=== PATIENT | male | born 1945 | race Caucasian/White ===

== ENCOUNTER 2017-03-25 08:14 | Day surgery (SDC) | payer OTHER ==
[2017-03-25] MEDS ORDERED: Lactated Ringers 1,000 ML IV SCH (09:30)
[2017-03-25] MEDS ORDERED: Propofol 200 MG/20 ML SDV IV ONE (10:00)
[2017-03-25] MEDS ORDERED: Midazolam 1 MG/ML 2 ML SDV IV ONE (10:00)
[2017-03-25] MEDS ORDERED: Bupivacaine 0.5%/EPINEPHrine 1:200,000 50 ML MDV INJECT ONE (10:17)
--- NOTE | 2017-03-25 11:07 | PCM.OPNOTE ---
- General Post-Op/Procedure Note Date of Surgery/Procedure: 03/25/17 Operative Procedure(s): wide local excision of basal cell ca bilateral shins with frozen section Findings: negative margins on frozen Pre Op Diagnosis: basal cell ca ant lower ext bilateral Anesthesia Technique: Local (11 ml 1% lido with epi/0.5% buvipicaine), MAC Primary Surgeon: Juan Chamberlain Anesthesia Provider: Verenice Mills Pathology: shave bx sites with 5 mm margins Complications: None Condition: Good Free Text/Narrative:: see dictation
--- NOTE | 2017-03-25 12:48 | OR ---
DATE OF OPERATION: 03/25/2017 SURGEON: Juan Chamberlain MD PROCEDURE PERFORMED: Wide local excision basal cell carcinoma, anterior shins bilaterally. PREOPERATIVE DIAGNOSIS: Basal cell carcinoma of the anterior shins. POSTOPERATIVE DIAGNOSIS: Basal cell carcinoma of the anterior shins. INDICATIONS FOR PROCEDURE: This is a 71-year-old white male, who underwent shave biopsies of some skin lesions on his shins. These were positive for basal cell carcinoma. He was brought to the operating room for wide local excision of both these lesions. Intraoperative findings are as follows. Well-healing shave sites with 5 mm margins of the skin were obtained. Frozen section reveals negative margins on both. DESCRIPTION OF PROCEDURE: After an excellent IV sedation was administered, the patient was prepped and draped in the usual sterile manner. Attention was turned to the left lower extremity where roughly a 1.5 cm lesion was identified and an additional 5 mm was marked out with a marking pen. The area was then infiltrated with a 1:1 mixture of 1% lidocaine with epinephrine and 0.5% bupivacaine. A circular incision was then made and the specimen was passed off the field after marking superior and lateral margins. We were able to pull the margins together adequately. This was done initially with 2-0 silk and then using interrupted vertical mattress sutures the skin was approximated. Two dog ears were excised and closed as well. This was done using 3-0 nylon. Two stay sutures of the silk were then removed. Specimen was sent for frozen section analysis, and while this was going on, our attention was turned to the right lower extremity where again we had roughly a 1.5 cm lesion with margins marked out the 5 mm. The area was infiltrated with more local, a grand total of 11 mL of the mixture was used, a circular incision was created, and the specimen was excised from the underlying skin tissue and was passed off the field after marking superior and lateral margins as well. This was also closed by placing two stay sutures of 2-0 silk and then approximating the skin edges after excising a dog ears using interrupted 3-0 nylon in a horizontal mattress suture pattern. Verbal reports by Dr. Park are that both of lesions are negative. Dressings were applied and the patient was taken to recovery in good condition. /[id number] /MODL
[2017-03-25 14:04] VITALS: BP 138/81
== END 2017-03-25 12:12 | disposition home or self-care (01) ==
LOC: FB.SDS 08:14
PROVIDERS: ATTEND Surgery
DX: C44.712 Basal cell carcinoma of skin of right lower limb, including hip (principal); C44.719 Basal cell carcinoma of skin of left lower limb, including hip; I25.10 Atherosclerotic heart disease of native coronary artery without angina pectoris; N40.0 Benign prostatic hyperplasia without lower urinary tract symptoms; E78.5 Hyperlipidemia, unspecified; I25.2 Old myocardial infarction; Z98.890 Other specified postprocedural states; Z79.82 Long term (current) use of aspirin; Z79.899 Other long term (current) drug therapy; Z88.1 Allergy status to other antibiotic agents; Z91.041 Radiographic dye allergy status
CPT/HCPCS: 11603; 12032; 88305; 88331; 88332; J2250; J2704; J7120